=== PATIENT | male | born 1995 | race Caucasian/White ===

== ENCOUNTER 2024-11-04 01:17 | Emergency (ER) | payer BC ==
[2024-11-04 01:23] VITALS: PULSE 96; RESP 18; O2SAT 100
== END 2024-11-04 01:52 | disposition left against medical advice (07) ==
LOC: ER 01:17
DX: N50.819 Testicular pain, unspecified (principal); Z53.21 Procedure and treatment not carried out due to patient leaving prior to being seen by health care provider